=== PATIENT | female | born 1990 | race Caucasian/White ===

== ENCOUNTER 2019-04-21 14:37 | Emergency (ER) | payer MEDICAID ==
--- NOTE | 2019-04-21 14:52 | Emergency Department Record ---
History of Present Illness - General Chief Complaint: Seizures Stated Complaint: SEIZURES Time Seen by Provider: 04/21/19 14:38 Source: Patient Mode of Arrival: Ambulatory Limitations: No limitations - History of Present Illness Initial Comments: 28 yo female presents with possible seizures with the onset in February. She states she is having frequent events with loss of consciousness, eyes rolling back, shaking. The episodes last shortest about 30 seconds to several minutes. The patient has a "dazed" period following. She reports three episodes today. No injury. No prior history of seizure disorder. Her ex-significant other witnessed the events to day. No incontinence. No tongue injury. No Primary Care Provider. No family history of seizures. MD Complaint: Loss of consciousness, Seizure -: Month(s) Description of Episode: Loss of consciousness, Post-event confusion, Tonic- clonic movement -: Second(s) Witnessed: Yes - by bystander Trauma: No Seizure History: None Place: Home Possible Precipitating Event: None Associated Symptoms: Denies other symptoms Treatments Prior to Arrival: None - [place] Coma Scale Eye Response: (4) Open spontaneously Motor Response: (6) Obeys commands Verbal Response: (5) Oriented Concepcion Total: 15 - Related Data Home Medications Medication Instructions Recorded Confirmed Last Taken Albuterol Sulfate [Ventolin Hfa] 1 - 2 puff IH .EVERY 4-6 HOURS PRN 04/21/1906/02 Unknown Beclomethasone Dipropionate [Qvar 10.6 gm IH DAILY 04/21/19 04/21/19 Unknown Redihaler] Desvenlafaxine Succinate [Pristiq] 50 mg PO QHS 04/21/19 04/21/19 Unknown Omeprazole [Prilosec] 20 mg PO DAILY 04/21/19 04/21/19 Unknown Allergies Allergy/AdvReac Type Severity Reaction Status Date / Time azithromycin [From Zithromax] Allergy DIFFICULTY Verified 04/21/19 14:56 BREATHING latex Allergy RASH Verified 04/21/19 14:56 sulfamethoxazole Allergy HIVES Verified 04/21/19 14:56 [From Bactrim] trimethoprim [From Bactrim] Allergy HIVES Verified 04/21/19 14:56 Review of Systems Constitutional: Denies: Chills, Fever, Malaise, Weakness Eyes: Denies: Eye discharge ENT: Denies: Congestion Respiratory: Denies: Cough Cardiovascular: Denies: Chest pain, Syncope Endocrine: Denies: Fatigue Gastrointestinal: Denies: Abdominal pain, Diarrhea, Nausea, Vomiting Musculoskeletal: Denies: Arthralgia, Back pain, Myalgia Skin: Denies: Bruising, Change in color, Rash Neurological: Reports: As per HPI, Seizure. Denies: Abnormal gait, Confusion, Headache, Tingling, Tremors, Vertigo Psychiatric: Denies: Anxiety Hematological/Lymphatic: Denies: Easy bleeding, Easy bruising Physical Exam - General General Appearance: Alert, Oriented x3, Cooperative, No acute distress Limitations: No limitations - Head Head exam: Atraumatic, Normocephalic, Normal inspection - Eye Eye exam: Normal appearance, PERRL. negative: Conjunctival injection, Scleral icterus - ENT ENT exam: Normal exam. negative: Mucous membranes moist, TM's normal bilaterally Ear exam: Normal external inspection Nasal Exam: Normal inspection Mouth exam: Normal external inspection Teeth exam: Normal inspection Throat exam: Normal inspection. negative: Tonsillar erythema, Tonsillomegaly, Tonsillar exudate, R peritonsillar mass, L peritonsillar mass - Neck Neck exam: Normal inspection - Respiratory Respiratory exam: Normal lung sounds bilaterally. negative: Respiratory distress - Cardiovascular Cardiovascular Exam: Regular rate, Normal rhythm, Normal heart sounds Peripheral Pulses: 2+: Radial (R), Radial (L) - GI/Abdominal GI/Abdominal exam: Soft. negative: Tenderness - Rectal Rectal exam: Deferred - exam: Deferred - Extremities Extremities exam: Normal inspection. negative: Pedal edema, Tenderness - Back Back exam: Denies: CVA tenderness (R), CVA tenderness (L) - Neurological Neurological exam: Alert, CN II-XII intact, Normal gait, Oriented X3, Reflexes normal. negative: Abnormal gait, Altered, Motor sensory deficit - Psychiatric Psychiatric exam: Normal affect, Normal mood. negative: Agitated, Anxious - Skin Skin exam: Dry, Intact, Normal color, Warm Course - Reevaluation(s) Reevaluation #1: 04/21/19 14:58 EKG #1: 14:48 Rate: 79 Rhythm: sinus Vassar: normal Intervals: normal ST segments: normal Prior: none 04/21/19 16:19 The labs were reviewed No acute process The UDS is positive for cannabis HCG is negative The RN witnessed a seizure like activity lasting less than one minute Ativan given The patient was somewhat slow afterward. 04/21/19 16:22 Given this is the 4th episode today I recommend transfer for further work up [facility] called for transfer for new onset seizures Medical Decision Making - Lab Data Result diagrams: 04/21/19 15:20 04/21/19 15:20 Disposition Disposition: Transfer Clinical Impression: Seizure Disposition: Acute Care Hospital Transfer Transfer To: [facility] Reason For Transfer: New onset seizures Accepting Physician: jerri Time Discussed w/Accepting Physician: 16:35 Condition: (1) Good Forms: Patient Portal Access Time of Disposition: 16:23 Quality - Quality Measures Quality Measures: N/A - Blood Pressure Screening Does Patient Have Any of the Following: Active Dx of HTN Blood Pressure Classification: Pre-Hypertensive BP Reading Systolic Measurement: 135 Diastolic Measurement: 82 Screening for High Blood Pressure: Patient Exclusion, Hx of HTN [G9744] Pre-Hypertensive Follow-up Interventions: Referral to alternative/primary care provider.
[2019-04-21 15:28] LABS: ABSOLUTE NEUTROPHIL COUNT 5.03; BASO % 0.3 % (0-6); EOS % 2.7 % (0-6); HEMATOCRIT 42.9 % (35.0-47.0); HEMOGLOBIN 14.3 gm/dl (11.6-16.0); LYMPH % 35.2 % (16-45); MEAN CELL VOLUME 88.8 fl (81-97); MEAN CORPUSCULAR HEMOGLOBIN 29.6 pg (27-33); MEAN CORPUSCULAR HGB CONC 33.3 g/dl (32-36); MEAN PLATELET VOLUME 8.9 fl (7.4-10.4); MONO % 4.8 % (0-9); PLATELET COUNT 440 K/uL (130-400); RED BLOOD COUNT 4.83 M/uL (3.80-5.40); WHITE BLOOD COUNT W/O DIFF 8.8 K/uL (4.2-12.2)
[2019-04-21 15:38] LABS: BLOOD UREA NITROGEN 8 mg/dL (6-20); CREATININE 0.5 mg/dL (0.5-0.9); EST GLOMERULAR FILTRATION RATE > 60 mL/min
[2019-04-21 15:39] LABS: TOTAL PROTEIN 6.7 g/dL (6.6-8.7)
[2019-04-21 15:41] LABS: GLUCOSE,RANDOM 126 mg/dL (74-109)
[2019-04-21 15:44] LABS: ALB/GLOB RATIO 1.4 (1.1-1.8); ALBUMIN 3.9 g/dL (4.0-5.0); ALKALINE PHOSPHATASE 75 U/L (35-104); ALT/SGPT 17 U/L (<33); AST/SGOT 17 U/L (10.0-35.0)
[2019-04-21 16:03] LABS: URINE APPEARANCE CLEAR; URINE BILIRUBIN NEGATIVE (NEGATIVE); URINE BLOOD SMALL (NEGATIVE); URINE COLOR YELLOW; URINE GLUCOSE (UA) NEGATIVE (NEGATIVE); URINE KETONE NEGATIVE (NEGATIVE); URINE LEUKOCYTE ESTERASE TRACE (NEGATIVE); URINE NITRITE NEGATIVE (NEGATIVE); URINE PROTEIN NEGATIVE (NEGATIVE); URINE UROBILINOGEN 0.2 E.U./dL (0.20 - 1.00)
[2019-04-21 16:07] LABS: AMPHETAMINE SCREEN URINE NOT DETECTED; BARBITURATE SCREEN URINE NOT DETECTED; BENZODIAZEPINE SCREEN URINE NOT DETECTED; COCAINE SCREEN URINE NOT DETECTED; METHADONE SCREEN URINE NOT DETECTED; METHAMPHETAMINE SCREEN NOT DETECTED; OPIATE SCREEN URINE NOT DETECTED; OXYCODONE SCREEN URINE NOT DETECTED; PHENCYCLIDINE SCREEN URINE NOT DETECTED; PROPOXYPHENE SCREEN URINE NOT DETECTED; THC SCREEN URINE DETECTED; TRICYCLIC ANTIDEPRESSANT SCRN NOT DETECTED
[2019-04-21 16:10] LABS: URINE BACTERIA NONE SEEN; URINE WBC 0 - 2 (0-2/hpf)
[2019-04-21] MEDS ORDERED: LORAZEPAM 2 MG/ML VIAL IV ONE ×2 (16:17→17:19)
== END 2019-04-21 19:21 | disposition short-term general hospital (02) ==
LOC: ER 14:37
DX: G40.909 Epilepsy, unspecified, not intractable, without status epilepticus (principal)
CPT/HCPCS: 70450; 80053; 80305; 81001; 83605; 83735; 84703; 85025; 93005; 93010; 96374; 96376; 99285

== ENCOUNTER 2019-04-30 18:22 | Emergency (ER) | payer MEDICAID ==
--- NOTE | 2019-04-30 18:32 | Emergency Department Record ---
History of Present Illness - General Chief complaint: Extremity Problem Stated complaint: RT ELBOW SWELLING/PAIN/HOT Time Seen by Provider: 04/30/19 18:27 Source: Patient Mode of Arrival: Ambulatory Limitations: No limitations - History of Present Illness Initial comments: 28 yo female presents to ED for evaluation of redness, pain to the right upper extremity. Patient reports recent admission for seizures at [facility] with IV placement near site or pain redness. Patient denies fevers, chills, or history of DM. Patient denies pain with ROM of the elbow. MD Complaint: Extremity pain Onset/Timin -: Days(s) Location: Right, Elbow -: Yes Myalgia Radiation: Proximal Quality: Aching Consistency: Constant Improves with: Nothing Worsens with: Nothing Associated Symptoms: Denies other symptoms - Related Data Previous Rx's Medication Instructions Recorded Doxycycline Hyclate 100 mg PO BID #20 cap 04/30/19 Allergies Allergy/AdvReac Type Severity Reaction Status Date / Time azithromycin [From Zithromax] Allergy DIFFICULTY Verified 04/30/19 18:35 BREATHING latex Allergy RASH Verified 04/30/19 18:35 sulfamethoxazole Allergy HIVES Verified 04/30/19 18:35 [From Bactrim] trimethoprim [From Bactrim] Allergy HIVES Verified 04/30/19 18:35 Review of Systems Constitutional: Denies: Chills, Fever, Malaise, Night sweats Eyes: Denies: Eye discharge, Eye pain ENT: Denies: Congestion, Ear pain, Epistaxis Respiratory: Denies: Cough, Dyspnea Cardiovascular: Denies: Chest pain, Dyspnea on exertion Endocrine: Denies: Fatigue, Heat or cold intolerance Gastrointestinal: Denies: Abdominal pain, Constipation Genitourinary: Denies: Incontinence, Retention Musculoskeletal: Denies: Arthralgia, Back pain Skin: Reports: Rash. Denies: Bruising, Change in color Neurological: Denies: Abnormal gait, Confusion, Headache, Tingling, Tremors Psychiatric: Denies: Anxiety Hematological/Lymphatic: Denies: Anemia, Blood Clots Past Medical History - SOCIAL HISTORY Smoking Status: Never smoker Drug Use: None - RESPIRATORY Hx Respiratory Disorders: Yes Hx Asthma: Yes - CARDIOVASCULAR Hx Cardio Disorders: No - NEURO Hx Neuro Disorders: Yes Hx Seizures: Yes - GI Hx GI Disorders: Yes Hx Reflux: Yes - Hx Genitourinary Disorders: No - ENDOCRINE Hx Endocrine Disorders: Yes Hx Diabetes: Yes (prediabetic) - MUSCULOSKELETAL Hx Musculoskeletal Disorders: Yes Hx Arthritis: Yes - PSYCH Hx Psych Problems: Yes Hx Anxiety: Yes Hx Depression: Yes - HEMATOLOGY/ONCOLOGY Hx Hematology/Oncology Disorders: No Family Medical History Hx Diabetes: Mother Hx Resp Disorders: Father Physical Exam - General General Appearance: Alert, Oriented x3, Cooperative, No acute distress Limitations: No limitations - Head Head exam: Atraumatic, Normocephalic, Normal inspection Head exam detail: negative: Abrasion, Contusion, Waddell's sign, General tenderness, Hematoma, Laceration - Eye Eye exam: Normal appearance. negative: Conjunctival injection, Periorbital swelling, Periorbital tenderness, Scleral icterus - ENT Ear exam: negative: Auricular hematoma, Auricular trauma Nasal Exam: negative: Active bleeding, Discharge, Dried blood, Foreign body, Sinus tenderness Mouth exam: negative: Drooling, Laceration, Muffled voice, Tongue elevation - Neck Neck exam: Normal inspection. negative: Meningismus, Tenderness - Respiratory Respiratory exam: Normal lung sounds bilaterally. negative: Respiratory distress, Rhonchi, Stridor, Wheezes - Cardiovascular Cardiovascular Exam: Regular rate, Normal rhythm, Normal heart sounds - GI/Abdominal GI/Abdominal exam: Soft. negative: Rebound, Rigid, Tenderness - Rectal Rectal exam: Deferred - exam: Deferred - Extremities Extremities exam: Tenderness, Other (Mild TTP, erythema to the right upper extremity proximal to the elbow, no induraction or flucuance present, no crep itation. No evidence for septic joint on examination.). negative: Calf tenderness, Pedal edema - Back Back exam: Denies: CVA tenderness (R), CVA tenderness (L) - Neurological Neurological exam: Alert, Normal gait, Oriented X3 - Psychiatric Psychiatric exam: Normal affect, Normal mood - Skin Skin exam: Erythema. negative: Abrasion Distribution of rash: RUE Description of rash: Confluent, Macular Course - Reevaluation(s) Reevaluation #1: 04/30/19 18:38 Examination appears c/w cellulitis likely from recent distal IV insertion site. Will treat with Doxycycline as directed for 10 days. Patient's vitals are stable on examination, no evidence for underlying abscess or deep soft-tissue infection. Patient appears stable for discharge at this time. Disposition Disposition: Discharge Clinical Impression: Cellulitis of right upper arm Disposition: Home, Self-Care Condition: (2) Stable Instructions: Cellulitis (ED) Additional Instructions: Return to ED if your symptoms worsen or if you have any concerns. Doxycycline as directed. Follow-up with your family doctor in 3-5 days as directed. Prescriptions: Doxycycline Hyclate 100 mg PO BID #20 cap Forms: Patient Portal Access Time of Disposition: 18:32 Quality - Quality Measures Quality Measures: N/A - Blood Pressure Screening Does Patient Have Any of the Following: No Blood Pressure Classification: Pre-Hypertensive BP Reading Systolic Measurement: 148 Diastolic Measurement: 89 Screening for High Blood Pressure: < Pre-Hypertensive BP, F/U Documented > [G8950] Pre-Hypertensive Follow-up Interventions: Referral to alternative/primary care provider.
== END 2019-04-30 18:49 | disposition home or self-care (01) ==
LOC: ER 18:22
DX: T80.29XA Infection following other infusion, transfusion and therapeutic injection, initial encounter (principal); L03.113 Cellulitis of right upper limb
CPT/HCPCS: 99282; 99283

== ENCOUNTER 2019-06-16 18:03 | Emergency (ER) | payer MEDICAID ==
--- NOTE | 2019-06-16 18:32 | Emergency Department Record ---
History of Present Illness - General Chief Complaint: Knee injury Stated Complaint: RT KNEE INJURY Time Seen by Provider: 06/16/19 18:18 Source: Patient Mode of Arrival: Wheelchair Limitations: No limitations - History of Present Illness Initial Comments: 28 yo female presents to ED for evaluation of pain to the right knee and right tib-fib region following injury that occurred 4 days ago. Patient reports that she slipped while stepping out of a car and struck her knee/lower leg on the pavement resulting in injury. Patient reports pain with ambulation, however has been able to weight bear following her injury. Patient report previous leg lengthening procedure to the right lower extremity as well. Patient denies numbness, tingling, or weakness to the distal aspect of the lower leg. MD Complaint: Knee injury Onset/Timin -: Days(s) Injury: Leg: Right, Knee: Right Type of Injury: Blunt Place: Street/outdoors Severity: Moderate Improves With: Immobilization Worsens With: Weight bearing Context: Direct blow - Related Data Previous Rx's Medication Instructions Recorded Doxycycline Hyclate 100 mg PO BID #20 cap 04/30/19 Allergies Allergy/AdvReac Type Severity Reaction Status Date / Time azithromycin [From Zithromax] Allergy DIFFICULTY Verified 06/16/19 18:29 BREATHING latex Allergy RASH Verified 06/16/19 18:29 sulfamethoxazole Allergy HIVES Verified 06/16/19 18:29 [From Bactrim] trimethoprim [From Bactrim] Allergy HIVES Verified 06/16/19 18:29 Review of Systems Constitutional: Denies: Chills, Fever, Malaise, Night sweats Eyes: Denies: Eye discharge, Eye pain ENT: Denies: Congestion, Ear pain, Epistaxis Respiratory: Denies: Cough, Dyspnea Cardiovascular: Denies: Chest pain, Dyspnea on exertion Endocrine: Denies: Fatigue, Heat or cold intolerance Gastrointestinal: Denies: Abdominal pain, Nausea, Vomiting Genitourinary: Denies: Incontinence, Retention Musculoskeletal: Reports: Arthralgia. Denies: Back pain, Gout, Joint swelling Skin: Denies: Bruising, Change in color Neurological: Denies: Abnormal gait, Confusion, Headache, Tingling, Tremors Psychiatric: Denies: Anxiety Hematological/Lymphatic: Denies: Anemia, Blood Clots Past Medical History - SOCIAL HISTORY Smoking Status: Never smoker Drug Use: None - RESPIRATORY Hx Respiratory Disorders: Yes Hx Asthma: Yes - CARDIOVASCULAR Hx Cardio Disorders: No - NEURO Hx Neuro Disorders: Yes Hx Seizures: Yes - GI Hx GI Disorders: Yes Hx Reflux: Yes - Hx Genitourinary Disorders: No - ENDOCRINE Hx Endocrine Disorders: Yes Hx Diabetes: Yes (prediabetic) - MUSCULOSKELETAL Hx Musculoskeletal Disorders: Yes Hx Arthritis: Yes - PSYCH Hx Psych Problems: Yes Hx Anxiety: Yes Hx Depression: Yes - HEMATOLOGY/ONCOLOGY Hx Hematology/Oncology Disorders: No Family Medical History Hx Diabetes: Mother Hx Resp Disorders: Father Physical Exam - General General Appearance: Alert, Oriented x3, Cooperative, Mild distress Limitations: No limitations - Head Head exam: Atraumatic, Normocephalic, Normal inspection Head exam detail: negative: Abrasion, Contusion, Waddell's sign, General tenderness, Hematoma, Laceration - Eye Eye exam: Normal appearance. negative: Conjunctival injection, Periorbital swelling, Periorbital tenderness, Scleral icterus - ENT Ear exam: negative: Auricular hematoma, Auricular trauma Nasal Exam: negative: Active bleeding, Discharge, Dried blood, Foreign body Mouth exam: negative: Drooling, Laceration, Muffled voice, Tongue elevation - Neck Neck exam: Normal inspection. negative: Meningismus, Tenderness - Respiratory Respiratory exam: Normal lung sounds bilaterally. negative: Respiratory distress, Rhonchi, Stridor, Wheezes - Cardiovascular Cardiovascular Exam: Regular rate, Normal rhythm, Normal heart sounds - Rectal Rectal exam: Deferred - exam: Deferred - Extremities Extremities exam: Tenderness (TTP along the infrapatellar region ot the right LE, no effusion present, post-operative changes are present to the RLE on exmaination. Compartments of the lower leg and thigh are soft on exmaination, strong DPP present.). negative: Calf tenderness, Pedal edema - Back Back exam: Denies: CVA tenderness (R), CVA tenderness (L) - Neurological Neurological exam: Alert, Oriented X3 - Psychiatric Psychiatric exam: Normal affect, Normal mood - Skin Skin exam: Normal color. negative: Abrasion Type of lesion: negative: abrasion Course Vital Signs 06/16/19 18:20 Temperature 98.8 F Pulse Rate [ 103 H Pulse Ox Probe] Respiratory 20 Rate Blood Pressure 127/82 [Left Arm] Pulse Ox 97 - Reevaluation(s) Reevaluation #1: 06/16/19 19:21 Right Knee: Moderate effusion No fracture Right lower leg: No fracture Post-operative changes Patient was updated on all results, will place in knee immobilizer and crutches with instructions to follow-up with Dr. Long in 3-5 days as directed. Patient verbalizes understanding of all instructions and appears stable for discharge at this time. Disposition Disposition: Discharge Clinical Impression: Contusion of knee, right Qualifiers: Encounter type: initial encounter Qualified Code(s): S80.01XA - Contusion of right knee, initial encounter Disposition: Home, Self-Care Condition: (2) Stable Instructions: Knee Pain (ED) Additional Instructions: Return to ED if your symptoms worsen or if you have any concerns. Ice, Ibuprofen as needed. Crutches and knee immobilizer as directed. Follow-up with Dr. Long in 3-5 days as directed. Referrals: Placido Long [DOCTOR OF OSTEOPATH] - [facility] [Provider Group] Forms: Patient Portal Access Time of Disposition: 19:20 Quality - Quality Measures Quality Measures: N/A - Blood Pressure Screening Does Patient Have Any of the Following: No Blood Pressure Classification: Normal BP Reading Systolic Measurement: 111 Diastolic Measurement: 66 Screening for High Blood Pressure: < Normal BP, F/U Not Required > [G8783] Pre-Hypertensive Follow-up Interventions: Referral to alternative/primary care provider.
--- NOTE | 2019-06-18 19:15 | RADIOLOGY REPORT ---
EXAM: KNEE, RIGHT 4 VIEWS HISTORY: RIGHT KNEE PAIN STATUS POST INJURY LAST SUNDAY. TECHNIQUE: Four views of the right knee were obtained. COMPARISON: Right tibia and fibula from the same date. FINDINGS: Postsurgical changes are present within the proximal tibia and fibula. The patient has a history of previous limb lengthening procedure. A moderate suprapatellar joint effusion is present. The bones appear intact. There is no visible acute fracture or dislocation. IMPRESSION: 1. MODERATE-SIZED JOINT EFFUSION. 2. NO ACUTE FRACTURE. [facility]: [id number] [facility]
--- NOTE | 2019-06-18 19:19 | RADIOLOGY REPORT ---
EXAM: LOWER LEG, RIGHT HISTORY: INJURED THE RIGHT KNEE AND LEG LAST SUNDAY. SLIPPED WHILE GETTING OUT OF A CAR AND RAMMED THE LEG INTO THE CAR. PREVIOUS LEG LENGTHENING PROCEDURE. TECHNIQUE: AP and lateral views of the right tibia and fibula were obtained. COMPARISON: Right knee series from the same date. FINDINGS: Postsurgical changes are present within the tibial and fibular shafts consistent with previous leg lengthening procedure. The bones appear intact. There is no acute fracture or dislocation. There is mild soft tissue swelling along the anterior aspect of the martel. There is no soft tissue air or foreign body. IMPRESSION: NO ACUTE FRACTURE. [facility]: [id number] [facility]
== END 2019-06-16 19:42 | disposition home or self-care (01) ==
LOC: ER 18:03
DX: S80.01XA Contusion of right knee, initial encounter (principal); M79.661 Pain in right lower leg; W22.8XXA Striking against or struck by other objects, initial encounter; Y92.414 Local residential or business street as the place of occurrence of the external cause
CPT/HCPCS: 99284